=== PATIENT | female | born 1970 | race African-American/Black ===

== ENCOUNTER 2018-11-03 09:54 | Day surgery (SDC) | payer OTHER ==
[2018-11-03] MEDS ORDERED: FENTAnyl 50 MCG/ML VIAL (12:13)
[2018-11-03] MEDS ORDERED: MIDAZOLAM 1 MG/ML 2 ML INJ ×3 (12:13→12:14)
== END 2018-11-03 14:51 | disposition home or self-care (01) ==
LOC: GIL 09:54
DX: Z12.11 Encounter for screening for malignant neoplasm of colon (principal); D12.8 Benign neoplasm of rectum; K64.1 Second degree hemorrhoids; K57.30 Diverticulosis of large intestine without perforation or abscess without bleeding
CPT/HCPCS: 45380; 84703; 88305